=== PATIENT | male | born 1995 | race Caucasian/White ===

== ENCOUNTER 2017-05-29 12:16 | Emergency (ER) | payer OTHER ==
[2017-05-29] MEDS: HYDROCODONE/APAP (5/325) TAB PO (13:40)
[2017-05-29 14:05] LABS: ADD MAN DIFF? NO
[2017-05-29 14:09] LABS: BASOPHILS % 0.6 % (0.0-2.0); EOSINOPHILS # 0.2 10^3/ul (0.0-0.5); EOSINOPHILS % 2.1 % (0.0-7.0); HEMATOCRIT 46.3 % (42.0-52.0); HEMOGLOBIN 16.2 g/dl (14.0-18.0); LYMPHOCYTES # 2.4 10^3/ul (0.8-2.9); LYMPHOCYTES % 33.7 % (15.0-51.0); MEAN CORPUSCULAR HEMOGLOBIN 31.1 pg (29.0-33.0); MEAN CORPUSCULAR VOLUME 88.9 fl (82.0-101.0); MEAN PLATELET VOLUME 12.6 fl (7.4-10.4); MONOCYTE # 0.5 10^3/ul (0.3-0.9); MONOCYTES % 6.9 % (0.0-11.0); NEUTROPHILS % 56.6 % (39.0-77.0); PLATELET COUNT 160 10^3/UL (140-415); RED BLOOD COUNT 5.21 10^6/ul (4.70-6.10); RED CELL DISTRIBUTION WIDTH 12.4 % (11.5-14.5)
[2017-05-29 14:09] LABS: WHITE BLOOD COUNT 7.1 10^3/ul (4.8-10.8)
[2017-05-29 14:15] LABS: ADD UMIC YES; UR ASCORBIC ACID NEGATIVE (NEGATIVE); UR BILIRUBIN (Dip) NEGATIVE (NEGATIVE); UR BLOOD (Dip) 1+ mg/dL (NEGATIVE); UR CLARITY CLEAR (CLEAR); UR COLOR YELLOW (YELLOW); UR GLUCOSE (Dip) NEGATIVE (NEGATIVE); UR KETONES (Dip) NEGATIVE (NEGATIVE); UR LEUKOCYTE ESTERASE (Dip) NEGATIVE Leu/ul (NEGATIVE); UR NITRITE (Dip) NEGATIVE (NEGATIVE); UR RBC 2 /HPF (0-5); UR SPECIFIC GRAVITY (Dip) 1.015 (1.003-1.030); UR TOTAL PROTEIN (Dip) NEGATIVE (NEGATIVE); UR UROBILINOGEN (Dip) NEGATIVE (NEGATIVE); UR WBC 1 /HPF (0-5)
[2017-05-29 14:28] LABS: ALANINE AMINOTRANSFERASE 66 IU/L (13-69); ALBUMIN 5.5 g/dl (3.3-4.9); ALBUMIN/GLOBULIN RATIO 1.83; ALKALINE PHOSPHATASE 89 IU/L (42-121); ANION GAP 20 (8-16); ASPARTATE AMINO TRANSFERASE 39 IU/L (15-46); BILIRUBIN,INDIRECT 0.1 mg/dl (0-1.1); BILIRUBIN,TOTAL 0.1 mg/dl (0.2-1.3); BLOOD UREA NITROGEN 15 mg/dl (7-20); CALCIUM 9.7 mg/dl (8.4-10.2); CARBON DIOXIDE 31 mmol/L (21-31); CHLORIDE 101 mmol/L (97-110); CREATININE 1.01 mg/dl (0.61-1.24); GLUCOSE 86 mg/dl (70-220); LIPASE 46 U/L (23-300); POTASSIUM 3.9 mmol/L (3.5-5.1); SODIUM 148 mmol/L (135-144); TOTAL PROTEIN 8.5 g/dl (6.1-8.1)
== END 2017-05-29 15:48 | disposition home or self-care (01) ==
LOC: FTE 12:16
DX: M54.9 Dorsalgia, unspecified (principal)
CPT/HCPCS: 36415; 74176; 80053; 81001; 83690; 85025; 99284-25

== ENCOUNTER 2018-08-10 10:09 | Emergency (ER) | payer OTHER ==
[2018-08-10] MEDS: ACETAMINOPHEN 325 MG TAB PO (10:36)
[2018-08-10] MEDS: DIPHTH/TET/ACEL PERTUSS (ADULT) 0.5 ML VIAL IM* (10:38)
[2018-08-10] MEDS ORDERED: LIDOCAINE 1% (MDV) 10 ML INJ INJ (10:38)
[2018-08-10] MEDS: LIDOCAINE 1% (MPF) 5 ML VIAL INFIL (11:01)
== END 2018-08-10 13:04 | disposition home or self-care (01) ==
LOC: FTE 10:09
DX: S01.112A Laceration without foreign body of left eyelid and periocular area, initial encounter (principal); M79.89 Other specified soft tissue disorders; Y09 Assault by unspecified means; Z23 Encounter for immunization
CPT/HCPCS: 12013; 73110-RT; 73130-RT; 90471; 90715; 99283-25